=== PATIENT | male | born 1990 | race Caucasian/White ===

== ENCOUNTER 2021-10-05 14:05 | Emergency (ER) | payer MEDICAID ==
[~2021-10-05] VITALS: Ht 177.8 cm; Wt 68.2 kg
[2021-10-05 14:22] VITALS: BP 136/97
[2021-10-05] MEDS ORDERED: SULF1TAB49 PO (15:12)
[2021-10-05] MEDS ORDERED: CEPH-585 PO (15:12)
[2021-10-05] MEDS ORDERED: sulfamethoxazole/trimethoprim DS (800/160mg) tablet PO ONE (15:25)
[2021-10-05] MEDS ORDERED: cephalexin 500mg capsule PO ONE (15:25)
== END 2021-10-05 15:54 | disposition home or self-care (01) ==
LOC: ER 14:06
DX: L02.11 Cutaneous abscess of neck (principal); Z59.00 Homelessness unspecified; Z56.0 Unemployment, unspecified
CPT/HCPCS: 10060; 99283

== ENCOUNTER 2022-02-28 17:04 | Emergency (ER) | payer MEDICAID ==
[~2022-02-28] VITALS: Ht 177.8 cm; Wt 65.9 kg
[~2022-02-28 17:04] MED LIST: CEPH-585 PO
[2022-02-28 17:38] VITALS: BP 105/80
== END 2022-03-01 01:24 | disposition left against medical advice (07) ==
LOC: ER 17:04
DX: L08.9 Local infection of the skin and subcutaneous tissue, unspecified (principal); Z53.21 Procedure and treatment not carried out due to patient leaving prior to being seen by health care provider